=== PATIENT | female | born 1985 | race Caucasian/White ===

== ENCOUNTER 2017-05-03 21:16 | Emergency (ER) | payer MEDICAID, MEDICARE, OTHER ==
[~2017-05-03] VITALS: Ht 170.2 cm; Wt 83.6 kg
[~2017-05-03 21:16] MED LIST: AMOX1TAB64 PO; BISA5TAB5 PO; HYDR200T PO; INSU100C5 SQ-INSULIN; INSU100V8 SQ; MAGN100T6 PO; METF500T4 PO; METO5TAB57 PO; OXYC-302 PO; OXYC-307 PO; POLY17PO5 PO; SENN1TAB7 PO; SERT100T PO; TRAM50TA2 PO
[2017-05-03] MEDS ORDERED: ONDANSETRON 2MG/ML, 2ML ONE (21:49)
[2017-05-03] MEDS ORDERED: KETOROLAC 30 MG/1 ML ONE (21:49)
[2017-05-03] MEDS ORDERED: SODIUM CHLORIDE 0.9% 1,000ML IVBOLUS ONE (22:00)
[2017-05-03] MEDS ORDERED: ONDANSETRON 2MG/ML, 2ML IVPush ONE (22:00)
[2017-05-03] MEDS ORDERED: KETOROLAC 30 MG/1 ML IVPush ONE (22:00)
[2017-05-03 22:01] VITALS: BP 132/79
[2017-05-03 22:08] LABS: HCG UR OBC PASS
[2017-05-03 22:12] LABS: HEMATOCRIT 37.8 % (34.6-47.8); HEMOGLOBIN 12.4 g/dL (11.7-16.4)
[2017-05-03 22:22] LABS: ASPARTATE AMINO TRANSFERASE 9 U/L (15-37); BLOOD UREA NITROGEN 10 mg/dL (7-18)
== END 2017-05-03 23:07 | disposition home or self-care (01) ==
LOC: ED 22:04
DX: N30.00 Acute cystitis without hematuria (principal); I10 Essential (primary) hypertension; E11.9 Type 2 diabetes mellitus without complications; Z79.4 Long term (current) use of insulin
CPT/HCPCS: 36415; 80053; 81001; 81025; 83690; 85025; 87077; 87086; 96361; 96374; 96375; 99284; J1885; J2405; J7030; 87186

== ENCOUNTER 2018-10-16 22:19 | Emergency (ER) | payer OTHER ==
[~2018-10-16] VITALS: Ht 170.2 cm; Wt 74.0 kg
[~2018-10-16 22:19] MED LIST changes: -HYDR200T PO; +HYDR200T72 PO; +METF500T17 PO; -METF500T4 PO; -SENN1TAB7 PO; +SENN1TAB8 PO
[2018-10-16 22:32] VITALS: BP 112/80
== END 2018-10-17 00:03 | disposition home or self-care (01) ==
LOC: ED 23:57
DX: K04.7 Periapical abscess without sinus (principal); H65.01 Acute serous otitis media, right ear; I10 Essential (primary) hypertension; E11.9 Type 2 diabetes mellitus without complications
CPT/HCPCS: 41800; 99283